=== PATIENT | female | born 1955 | race Caucasian/White ===

== ENCOUNTER 2016-12-09 09:25 | Outpatient (CLI) | payer MEDICAID | END 2016-12-09 11:42 | LOC: D.MAMMO 09:25 | DX: Z12.31 Encounter for screening mammogram for malignant neoplasm of breast (principal) ==

== ENCOUNTER 2019-04-12 08:00 | Outpatient (CLI) | payer MEDICARE | END 2019-04-12 23:59 | disposition home or self-care (01) | LOC: D.MAMMO 08:00 | PROVIDERS: ATTEND Family Medicine | DX: Z12.31 Encounter for screening mammogram for malignant neoplasm of breast (principal) ==